=== PATIENT | male | born 1955 | race Two or more races ===

== ENCOUNTER 2024-09-06 04:55 | Inpatient (IN) | payer OTHER ==
[~2024-09-06] VITALS: Ht 165.1 cm; Wt 75.0 kg
[2024-09-06 05:19] LABS: BASOPHILS % (AUTO) 0.1 % (0.0-2.0); EOSINOPHILS % (AUTO) 0.1 % (1.0-6.0); HEMATOCRIT 35.1 % (41-53); HEMOGLOBIN 11.8 g/dL (13.5-17.5); LYMPHOCYTES # (AUTO) 1.1 K/uL (1.0-4.8); LYMPHOCYTES % (AUTO) 17.3 % (22.0-44.0); MEAN CORPUSCULAR HEMOGLOBIN 30.8 pg (26.0-34.0); MEAN CORPUSCULAR HGB CONC 33.6 G/dL (31.0-37.0); MEAN CORPUSCULAR VOLUME 92 fL (80-100); MONOCYTES # (AUTO) 0.3 K/uL (0.1-1.0); MONOCYTES % (AUTO) 5.7 % (2.0-9.0); NEUTROPHILS # (AUTO) 4.7 K/uL (1.8-7.7); NEUTROPHILS % (AUTO) 76.8 % (40.0-70.0); PLATELET COUNT (AUTO) 54 K/uL (150-450); RED BLOOD CELL COUNT(AUTO) 3.83 MIL/uL (4.50-5.90); RED CELL DISTRIBUTION WIDTH 13.9 % (11.5-14.5); WHITE BLOOD COUNT (AUTO) 6.1 K/uL (4.5-11.0)
[2024-09-06 05:29] LABS: ANION GAP 22 mmol/L (8-16); CALCIUM, TOTAL 8.4 mg/dL (8.8-10.5); CARBON DIOXIDE 19 mmol/L (22-29); CHLORIDE 86 mmol/L (98-107); CREATININE 1.07 mg/dL (0.60-1.30); GLOMERULAR FILTR. RATE CALC > 60 mL/min (>60); GLUCOSE,RANDOM 99 mg/dL (70-110); POTASSIUM 3.6 mmol/L (3.5-5.1); SODIUM SERUM 127 mmol/L (136-145); UREA NITROGEN, BLOOD 31 mg/dL (7-18)
[2024-09-06] MEDS ORDERED: DILTIAZEM HCL 5 MG/ML 5 ML VIAL IVP ONE (05:30)
[2024-09-06 05:35] LABS: PROTHROMBIN TIME 11.2 SEC (9.4-11.6)
[2024-09-06] MEDS: SODIUM CHLORIDE 0.9% 1,000 ML IV ONE (05:35)
[2024-09-06] MEDS: ONDANSETRON HCL 4 MG/2 ML VIAL IVP ONE (05:36)
[2024-09-06] MEDS: FAMOTIDINE 20 MG/2 ML VIAL IVP ONE (05:36)
[2024-09-06 05:45] LABS: TROPONIN I-HIGH SENSITIVITY 51 ng/L (<76)
[2024-09-06 05:46] LABS: CREATINE KINASE, TOTAL ONLY 4277 U/L (39-308)
[2024-09-06 05:48] LABS: B-TYPE NATRIURETIC PEPTIDE 109 pg/mL (0-100)
[2024-09-06] MEDS ORDERED: TRAZ-252 PO (06:03)
[2024-09-06] MEDS ORDERED: OMEP20CA12 PO (06:03)
[2024-09-06] MEDS: DILTIAZEM HCL 5 MG/ML 5 ML VIAL IVP ONE ×3 (06:28→08:02)
[2024-09-06] MEDS: ASPIRIN 325 MG TABLET PO ONE (06:28)
[2024-09-06] MEDS: PANTOPRAZOLE SODIUM 40 MG/VIAL IVP ONE (07:10)
[2024-09-06] MEDS: PANTOPRAZOLE SODIUM 80 MG in SODIUM CHLORIDE 0.9% 100 ML IV SCH (07:20)
[2024-09-06 07:21] LABS: LIPASE 567 U/L (16-77)
[2024-09-06] MEDS: SODIUM CHLORIDE 0.9% 2,250 ML IV ONE (07:39)
[2024-09-06] MEDS: DILTIAZEM HCL 125 MG in DEXTROSE 5%-WATER 100 ML IV PRN (08:37)
[2024-09-06] MEDS: LORazepam 2 MG/ML VIAL IVP ONE (09:03)
[2024-09-06 09:23] LABS: ALANINE AMINOTRANSFERASE 1031 U/L (12-78); ALBUMIN 3.3 g/dL (3.4-5.0); ALKALINE PHOSPHATASE 131 U/L (46-116); BILIRUBIN,TOTAL 4.8 mg/dL (0.1-1.0); TOTAL PROTEIN, SERUM 6.7 g/dL (6.4-8.2)
[2024-09-06 09:41] LABS: ASPARTATE AMINOTRANSFERASE 4797 U/L (15-37)
[2024-09-06] MEDS ORDERED: DIAZEPAM 10 MG TABLET PO PRN (10:45)
[2024-09-06] MEDS: DIAZEPAM 5 MG/ML 2 ML SYRINGE IVP SCH ×3 (10:45→14:38)
[2024-09-06 12:35] LABS: APPEARANCE,URINE CLEAR (CLEAR); BILIRUBIN,URINE NEGATIVE (NEGATIVE); COLOR,URINE YELLOW (YELLOW); GLUCOSE, URINE (UA) NEGATIVE (NEGATIVE); KETONES,URINE 40-60 mg/dL (NEGATIVE); LEUKOCYTE ESTERASE ,URINE NEGATIVE (NEGATIVE); NITRATE,URINE NEGATIVE (NEGATIVE); OCCULT BLOOD,URINE MODERATE (NEGATIVE); PROTEIN,URINE 30-70 mg/dL (NEGATIVE); SPECIFIC GRAVITIY, URINE 1.022 (1.003-1.030)
[2024-09-06 12:48] LABS: BACTERIA,URINE None Seen /HPF (None Seen); SQUAMOUS EPITHELIAL CELL,UR Few /LPF (None Seen); WBC,URINE None Seen /HPF (0-5)
[2024-09-06] MEDS: DILTIAZEM HCL 125 MG in DEXTROSE 5%-WATER 100 ML IV SCH (13:27)
[2024-09-06 13:32] LABS: ALCOHOL, URINE DRUG SCREEN POSITIVE (NEGATIVE); AMPHET/METH SCREEN,URINE NEGATIVE (NEGATIVE); BARBITURATE SCREEN, URINE NEGATIVE (NEGATIVE); BENZODIAZEPINES SCREEN,URINE NEGATIVE (NEGATIVE); CANNABINOID SCREEN,URINE NEGATIVE (NEGATIVE); COCAINE SCREEN,URINE NEGATIVE (NEGATIVE); METHADONE SCREEN, URINE NEGATIVE (NEGATIVE); OPIATE SCREEN,URINE NEGATIVE (NEGATIVE); PHENCYCLIDINE SCREEN,URINE NEGATIVE (NEGATIVE)
[2024-09-06 13:39] LABS: BASOPHILS % (AUTO) 0.3 % (0.0-2.0); EOSINOPHILS % (AUTO) 0.4 % (1.0-6.0); HEMATOCRIT 29.6 % (41-53); LYMPHOCYTES # (AUTO) 0.9 K/uL (1.0-4.8); LYMPHOCYTES % (AUTO) 22.1 % (22.0-44.0); MEAN CORPUSCULAR HEMOGLOBIN 30.9 pg (26.0-34.0); MEAN CORPUSCULAR HGB CONC 33.7 G/dL (31.0-37.0); MEAN CORPUSCULAR VOLUME 92 fL (80-100); MONOCYTES # (AUTO) 0.3 K/uL (0.1-1.0); NEUTROPHILS % (AUTO) 71.2 % (40.0-70.0); PLATELET COUNT (AUTO) 35 K/uL (150-450); RED BLOOD CELL COUNT(AUTO) 3.24 MIL/uL (4.50-5.90); RED CELL DISTRIBUTION WIDTH 13.6 % (11.5-14.5); WHITE BLOOD COUNT (AUTO) 4.2 K/uL (4.5-11.0)
[2024-09-06] MEDS: OCTREOTIDE ACETATE 500 MCG in SODIUM CHLORIDE 0.9% 97.5 ML IV SCH (14:13)
[2024-09-06] MEDS: 1: MAGNESIUM SULFATE 2 GM, MVI, ADULT NO.1 WITH VIT K 10 ML, THIAMINE 100 MG, FOLIC ACID IV SCH (14:27)
[2024-09-06] MEDS ORDERED: DIAZEPAM 5 MG/ML 2 ML SYRINGE IVP PRN (14:45)
[2024-09-06 15:39] LABS: COVID AG,FIA SOURCE NASAL SWAB
[2024-09-06 16:04] LABS: SARS-COV2 (COVID) ANTIGEN,FIA Negative (Negative)
[2024-09-06] MEDS: ChlordiazePOXIDE HCL 25 MG CAPSULE PO ONE (16:04)
[2024-09-06 17:36] VITALS: TEMP 98.5
[2024-09-06 18:37] VITALS: BP 131/76; PULSE 74; RESP 16; O2SAT 96
[2024-09-07] MEDS ORDERED: DIAZEPAM 10 MG TABLET PO PRN (07:00)
[2024-09-07] MEDS ORDERED: DILTIAZEM HCL 125 MG in DEXTROSE 5%-WATER 100 ML IV SCH (08:00)
[2024-09-07] MEDS ORDERED: DIAZEPAM 10 MG TABLET PO SCH (09:00)
[2024-09-09] MEDS ORDERED: DIAZEPAM 5 MG TABLET PO PRN (07:00)
[2024-09-09] MEDS ORDERED: DIAZEPAM 5 MG TABLET PO SCH (09:00)
[2024-09-10] MEDS ORDERED: DIAZEPAM 5 MG TABLET PO PRN (07:00)
== END 2024-09-06 20:10 | disposition short-term general hospital (02) | DRG 308 ==
LOC: EMS 04:57 → EDBEDREQTM 13:30 → EDH 14:49
PROVIDERS: ADMIT Hospitalist; ATTEND Hospitalist
DX: I48.91 Unspecified atrial fibrillation (principal); K85.90 Acute pancreatitis without necrosis or infection, unspecified; E87.1 Hypo-osmolality and hyponatremia; K92.0 Hematemesis; M62.82 Rhabdomyolysis; Z20.822 Contact with and (suspected) exposure to COVID-19; D64.9 Anemia, unspecified; Y90.9 Presence of alcohol in blood, level not specified; D69.6 Thrombocytopenia, unspecified; F10.10 Alcohol abuse, uncomplicated; K21.9 Gastro-esophageal reflux disease without esophagitis; K74.60 Unspecified cirrhosis of liver
CPT/HCPCS: 71045; 76700; 80048; 80076; 80307; 81001; 82550; 83690; 83880; 84443; 84484; 85025; 85610; 85730; 93005; 99285; G0480; J2060; J2354; J2405; J2470; J3411; J3475; J3490; J7030; J7050; J7060; 36415-L1; 36415-TC